=== PATIENT | female | born 1995 | race Two or more races ===

== ENCOUNTER 2019-11-28 17:37 | Emergency (ER) | payer MEDICAID ==
[~2019-11-28] VITALS: Ht 167.6 cm; Wt 141.0 kg
[2019-11-28] MEDS ORDERED: SODIUM CHLORIDE 0.9% 1,000 ML IV ONE ×2 (18:07→23:15)
[2019-11-28 19:46] LABS: EOSINOPHILS % 0.6 % (0.0-5.0); HEMOGLOBIN. 14.1 g/dL (12.0-16.0); LYMPHOCYTES % 20.1 % (20.0-50.0); MEAN CORPUSCULAR HEMOGLOBIN 30.2 pg (28.0-32.0); MEAN CORPUSCULAR VOLUME 85.8 fL (81.0-99.0); MEAN PLATELET VOLUME 8.6 fl (7.4-10.4); MONOCYTES % 6.4 % (2.0-8.0); NEUTROPHILS % 71.9 % (40.0-76.0); PLATELET 307 x1000/uL (130-400); RED BLOOD CELL COUNT 4.67 mill/uL (4.2-5.4); RED CELL DISTRIBUTION WIDTH 13.1 % (11.6-14.6)
[2019-11-28 19:52] LABS: CHLORIDE 98 mEq/L (98-107)
[2019-11-28 19:56] LABS: ETHANOL BLOOD < 10 mg/dL
[2019-11-28 20:01] LABS: CREATINE KINASE 63 IU/L (26-192)
[2019-11-28] MEDS ORDERED: LORAZEPAM 2MG/ML CPJ IV ONE (20:30)
[2019-11-28 21:43] LABS: *AMPHETAMINES SCREEN URINE NEGATIVE (NEGATIVE)
[2019-11-28 21:44] LABS: *BARBITURATES SCREEN URINE NEGATIVE (NEGATIVE); *BENZODIAZEPINES SCREEN URINE NEGATIVE (NEGATIVE); *COCAINE SCREEN URINE NEGATIVE (NEGATIVE); METHADONE URINE SCREEN NEGATIVE (NEGATIVE); OPIATES URINE SCREEN NEGATIVE (NEGATIVE)
[2019-11-28 21:45] LABS: PHENCYCLIDINE URINE SCREEN NEGATIVE (NEGATIVE)
[2019-11-28 21:50] LABS: CANNABINOID URINE SCREEN PRESUMTIVE POSITIVE (NEGATIVE)
[2019-11-28] MEDS ORDERED: LORAZEPAM 1MG TABLET PO ONE (23:15)
[2019-11-29 00:15] VITALS: BP 114/64
== END 2019-11-29 01:58 | disposition home or self-care (01) ==
LOC: ER 18:06
DX: R07.89 Other chest pain (principal); R00.0 Tachycardia, unspecified; R73.9 Hyperglycemia, unspecified
CPT/HCPCS: 36415; 71045; 80053; 80305; 80320; 82550; 82962; 84443; 85025; 85379; 93005; 96361; 96374; 96376; 99285; J2060; J7030; G0480